=== PATIENT | male | born 1960 | race African-American/Black ===

== ENCOUNTER 2019-12-29 21:58 | Inpatient (IN) | payer MEDICARE ==
[~2019-12-29 21:58] MED LIST: Iopamidol-370 76% 500 ML 1 ML ONE
[2019-12-29] MEDS ORDERED: Nitroglycerin 2% Ointment 1 INCH/1 GM Packet ONE (22:16)
[2019-12-29 22:44] LABS: #Basophils 0.1 thou/uL (0.0-0.2); #Eosinphils 0.1 thou/uL (0.0-0.7); #Lymphocytes 1.6 thou/uL (1.20-3.40); #Monocytes 0.8 thou/uL (0.11-0.59); #Neutrophils 7.6 thou/uL (1.40-6.50); %Basophils 0.7 % (0.0-1.0); %Eosinophils 0.9 % (0.0-10.0); %Lymphocytes 15.7 % (21.0-51.0); %Monocytes 7.8 % (0.0-10.0); %Neutrophils 74.9 % (42.0-75.0); Hemoglobin 14.8 g/dL (14.0-18.0); Mean Corpuscular Hemoglobin 31.4 pg (27.0-31.0); Mean Corpuscular Volume 95.2 fL (78.0-98.0); Mean Platelet Volume 7.3 fL (7.4-10.4); Platelet Count 264 thou/uL (130-400); Red Blood Cell (RBC) Count 4.72 mill/uL (4.70-6.10); White Blood Cell (WBC) Count 10.2 thou/uL (4.8-10.8)
[2019-12-29 23:05] LABS: ALT (SGPT) 10 U/L (8-55); AST (SGOT) 14 U/L (5-34); Alkaline Phosphatase 92 U/L (40-110); Anion Gap 23 mmol/L (10-20); BUN (Urea Nitrogen) 23 mg/dL (8.4-25.7); Bilirubin, Total 0.4 mg/dL (0.2-1.2); CK (CPK) 242 U/L (30-200); Calc. Creatinine Clearance 0 mL/min (70-130); Calcium 9.9 mg/dL (7.8-10.44); Carbon Dioxide 16 mmol/L (22-29); Chloride 99 mmol/L (98-107); Estimated GFR-MDRD 50; Globulin 2.7 g/dL (2.4-3.5); Glucose 482 mg/dL (70-105); Potassium 4.5 mmol/L (3.5-5.1); Protein, Total 6.7 g/dL (6.0-8.3); Sodium 133 mmol/L (136-145)
[2019-12-29] MEDS ORDERED: Insulin Regular 300 UNITS/3 ML VIAL ONE (23:17)
[2019-12-29] MEDS ORDERED: Metoclopramide HCl 10 MG/2 ML VIAL ONE (23:17)
[2019-12-29] MEDS ORDERED: Fentanyl 100 MCG/2 ML VIAL ONE (23:19)
[2019-12-29 23:31] LABS: Acetaminophen Less than 6.0 mcg/mL (10.0-30.0); Alcohol Less than 10 mg/dL (Less than 10); Salicylate Less than 8.0 mg/dL (15.0-30.0)
[2019-12-30] LABS: Amphetamine Not Detected (NotDetected); Barbiturates Screen Not Detected (NotDetected); Benzodiazepine Screen Not Detected (NotDetected); Cocaine Metabolite Screen Not Detected (NotDetected); Medtox Control Line Valid? VALID (VALID); Medtox Reader # READER 1; Methadone Not Detected (NotDetected); Methamphetamine Not Detected (NotDetected); Opiate Screen Not Detected (NotDetected); Oxycodone Screen Not Detected (NotDetected); Phencyclidine (PCP) Not Detected (NotDetected); THC/Cannabinoid Screen Detected (NotDetected); Tricyclic Screen Not Detected (NotDetected)
--- NOTE | 2019-12-30 00:28 | RAD ---
AP CHEST: Date: 12/29/2019 HISTORY: Chest pain. COMPARISON: 06/18/2015. FINDINGS: The lung gonzalez appear clear. No infiltrate or vascular congestion. Heart and mediastinum unremarkabl e. IMPRESSION: Unremarkable chest. POS: AGW
[2019-12-30] MEDS ORDERED: NS 0.9% w/ 20 MEQ KCL 1,000 ML/1,000 ML BAG IV PRN ×2 (01:49)
[2019-12-30] MEDS ORDERED: D5 1/2 NS w/20 mEq KCL 1,000 ML IV PRN (01:49)
[2019-12-30] MEDS ORDERED: Dextrose 50% Abboject 50 ML SYRINGE SLOW IVP PRN ×2 (01:49→09:13)
[2019-12-30] MEDS ORDERED: Dextrose 5% in Water 1,000 ML IV PRN ×2 (01:49→09:13)
[2019-12-30] MEDS ORDERED: Sodium Chloride 0.9% 1,000 ML IV PRN ×8 (01:49→02:33)
[2019-12-30] MEDS ORDERED: Dextrose 5 %-0.45 % NaCl 1,000 ML IV PRN ×2 (01:49→02:33)
[2019-12-30] MEDS ORDERED: Insulin Regular 100 units/100 ml in NS IVPB SCH (02:00)
[2019-12-30] MEDS ORDERED: HUMULIN R 100 UNITS in Sodium Chloride 0.9% 100 ML IVPB SCH ×2 (02:00→02:33)
[2019-12-30] MEDS ORDERED: Electrolyte Replacement Protocol FS PRN (02:00)
[2019-12-30] MEDS ORDERED: ADD ELECTROLYTE REPLACEMENT SET TO PROFILE FS SCH (02:00)
[2019-12-30] MEDS ORDERED: Acetaminophen 500 MG TAB PO PRN (02:33)
[2019-12-30] MEDS ORDERED: Ondansetron ODT 4 MG TAB PO PRN (02:33)
[2019-12-30] MEDS ORDERED: hydrALAZINE 20 MG/ML VIAL SLOW IVP PRN (02:33)
[2019-12-30] MEDS ORDERED: Ondansetron PF 4 MG/2 ML Vial IVP PRN (02:33)
[2019-12-30] MEDS ORDERED: Electrolyte Replacement Protoc 1 EACH EACH IVPB PRN (02:33)
[2019-12-30] MEDS ORDERED: NS 0.9% w/ 20 MEQ KCL 1,000 ML IV PRN ×2 (02:33)
[2019-12-30 02:45] VITALS: BMI 21.7
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
[2019-12-30] MEDS: D5 1/2 NS w/20 mEq KCL 1,000 ML IV PRN ×2 (04:04→08:05)
[2019-12-30 04:33] LABS: Hemoglobin A1c 10.9 % (4.0-6.0)
[2019-12-30 04:50] LABS: Anion Gap 17 mmol/L (10-20); BUN (Urea Nitrogen) 19 mg/dL (8.4-25.7); Calc. Creatinine Clearance 58 mL/min (70-130); Calcium 8.8 mg/dL (7.8-10.44); Carbon Dioxide 16 mmol/L (22-29); Chloride 106 mmol/L (98-107); Estimated GFR-MDRD 71; Glucose 242 mg/dL (70-105); Magnesium 1.7 mg/dL (1.6-2.6); Potassium 3.8 mmol/L (3.5-5.1); Sodium 135 mmol/L (136-145)
[2019-12-30 04:54] LABS: Troponin I 0.026 ng/mL (< 0.028)
[2019-12-30 05:06] LABS: Hemoglobin 13.3 g/dL (14.0-18.0); Mean Corpuscular HGB CONC 32.3 g/dL (32.0-36.0); Mean Corpuscular Hemoglobin 29.9 pg (27.0-31.0); Mean Corpuscular Volume 92.4 fL (78.0-98.0); Mean Platelet Volume 7.7 fL (7.4-10.4); Platelet Count 270 thou/uL (130-400); Red Blood Cell (RBC) Count 4.47 mill/uL (4.70-6.10); White Blood Cell (WBC) Count 14.1 thou/uL (4.8-10.8)
[2019-12-30] MEDS ORDERED: Magnesium 2 GM/50 ML 2 GM in Premix Bag 1 BAG IVPB SCH (05:15)
[2019-12-30 06:48] LABS: Anion Gap 11 mmol/L (10-20); BUN (Urea Nitrogen) 17 mg/dL (8.4-25.7); Calc. Creatinine Clearance 63 mL/min (70-130); Calcium 8.5 mg/dL (7.8-10.44); Carbon Dioxide 20 mmol/L (22-29); Chloride 108 mmol/L (98-107); Estimated GFR-MDRD 78; Glucose 203 mg/dL (70-105); Potassium 3.9 mmol/L (3.5-5.1); Sodium 135 mmol/L (136-145)
[2019-12-30 06:53] LABS: Troponin I 0.023 ng/mL (< 0.028)
--- NOTE | 2019-12-30 07:02 | CT ---
CTA CHEST AND ABDOMEN FOR AORTOGRAM: INDICATIONS: Chest pain. Assess for aortic dissection. TECHNIQUE: Multiple axial tomograms obtained following aortogram protocol with multiplanar reconstruction and 3D post processing. FINDINGS: The thoracic aorta shows no evidence of aneurysm or dissection. The abdominal aorta shows atherosclerotic change. No evidence of dissection. The bifurcation is not i ncluded on the exam but the exam extends to the aortic bifurcation. Soft tissues: The lung bases are clear. Liver, spleen, pancreas: Unremarkable. Kidneys: Unremarkable. Bowel loops: Unremarkable as visualized. The abdominal aorta is mildly ectatic distally, measuring up to 2.4 cm. There is atherosclerotic avalos ge with some peripheral thrombus seen. IMPRESSION: 1. Atherosclerotic changes in the abdominal aorta with mild ectasia and peripheral thrombus, as noted above. There is no evidence of dissection. 2. The thoracic aorta is unremarkable. POS: AGW
[2019-12-30] MEDS: Famotidine/PF 20 mg/2ml Vial SLOW IVP SCH (08:04)
[2019-12-30] MEDS ORDERED: HumaLOG 300 UNITS/3 ML VIAL SC PRN (09:13)
--- NOTE | 2019-12-30 09:18 | PDOC.HOSPP ---
- Subjective Encounter Date: 12/30/19 Encounter Time: 09:17 Subjective: much improved, no complaints - Objective Vital Signs & Weight: Vital Signs (12 hours) Temp 12/30/19 07:31 97.8 F 12/30/19 04:04 97.8 F 12/30/19 02:25 97.5 F L Weight Weight 142 lb 11.2 oz Most Recent Monitor Data Heart Rate from ECG 70 NIBP 128/63 NIBP BP-Mean 84 Respiration from ECG 10 SpO2 97 I&O: 12/29/19 12/30/19 12/31/19 06:59 06:59 06:59 Intake Total 2070 510 Output Total 250 Balance 1820 510 Result Diagrams: 12/30/19 03:54 12/30/19 06:18 Hospitalist ROS - Medication Medications: Active Medications Generic Name Dose Route Start Last Admin Trade Name Pawelq PRN Reason Stop Dose Admin Famotidine 20 mg 12/30/19 09:00 12/30/19 08:04 Pepcid SLOW IVP 20 mg DAILY TAMANNA Administration - Exam Neck: no JVD Heart: RRR, no murmur Respiratory: CTAB Gastrointestinal: soft, non-tender, non-distended, normal bowel sounds Extremities: no edema Hosp A/P (1) DKA (diabetic ketoacidoses) Code(s): E11.10 - TYPE 2 DIABETES MELLITUS WITH KETOACIDOSIS WITHOUT COMA Status: Acute Qualifiers: Diabetes mellitus type: type 2 Diabetes mellitus complication detail: without coma Qualified Code(s): E11.10 - Type 2 diabetes mellitus with ketoacidosis without coma (2) Chest pain Code(s): R07.9 - CHEST PAIN, UNSPECIFIED Status: Acute Qualifiers: Chest pain type: precordial pain Qualified Code(s): R07.2 - Precordial pain (3) Hypertension Code(s): I10 - ESSENTIAL (PRIMARY) HYPERTENSION Status: Chronic Qualifiers: Hypertension type: essential hypertension Qualified Code(s): I10 - Essential (primary) hypertension (4) Hyperlipidemia associated with type 2 diabetes mellitus Code(s): E11.69 - TYPE 2 DIABETES MELLITUS WITH OTHER SPECIFIED COMPLICATION; E78.5 - HYPERLIPIDEMIA, UNSPECIFIED Status: Chronic - Plan DKA resolved transition to accu/ss start lantuss/metformin aadvancce diet stress test tomorrow?
[2019-12-30] MEDS ORDERED: Insulin Glargine 10 UNITS in Pre-Filled Syringe 1 EACH SC SCH (10:15)
[2019-12-30] MEDS: Sodium Chloride 0.9% 1,000 ML IV SCH ×2 (11:06→23:14)
[2019-12-30 11:18] LABS: Anion Gap 9 mmol/L (10-20); BUN (Urea Nitrogen) 15 mg/dL (8.4-25.7); Calc. Creatinine Clearance 71 mL/min (70-130); Calcium 8.3 mg/dL (7.8-10.44); Carbon Dioxide 21 mmol/L (22-29); Chloride 107 mmol/L (98-107); Estimated GFR-MDRD 89; Glucose 112 mg/dL (70-105); Potassium 3.9 mmol/L (3.5-5.1); Sodium 133 mmol/L (136-145)
[2019-12-30] MEDS: metFORMIN 500 MG TAB PO SCH (17:32)
[2019-12-30] MEDS: Insulin Glargine 40 UNITS in Pre-Filled Syringe 1 EACH SC SCH (20:22)
[2019-12-30] MEDS: Atorvastatin Calcium 20 MG TAB PO SCH (20:22)
[2019-12-31 05:04] LABS: Anion Gap 11 mmol/L (10-20); BUN (Urea Nitrogen) 11 mg/dL (8.4-25.7); Calc. Creatinine Clearance 78 mL/min (70-130); Calcium 8.2 mg/dL (7.8-10.44); Carbon Dioxide 21 mmol/L (22-29); Chloride 107 mmol/L (98-107); Estimated GFR-MDRD Greater than 90; Glucose 125 mg/dL (70-105); Magnesium 1.7 mg/dL (1.6-2.6); Potassium 4.1 mmol/L (3.5-5.1); Sodium 135 mmol/L (136-145)
[2019-12-31] MEDS ORDERED: Magnesium 2 GM/50 ML 2 GM in Premix Bag 1 BAG IVPB SCH (06:30)
--- NOTE | 2019-12-31 07:57 | PDOC.HOSPP ---
- Subjective Encounter Date: 12/31/19 Encounter Time: 07:55 Subjective: doing well, no chest pain - Objective Vital Signs & Weight: Vital Signs (12 hours) Temp Pulse Ox 12/31/19 07:28 97.6 F 12/31/19 03:53 97.6 F 12/30/19 23:28 97.4 F L 12/30/19 20:00 96 Weight Weight 142 lb 11.2 oz Most Recent Monitor Data Heart Rate from ECG 70 NIBP 120/52 NIBP BP-Mean 74 Respiration from ECG 23 SpO2 100 I&O: 12/30/19 12/31/19 01/01/20 06:59 06:59 06:59 Intake Total 2070 2620 Output Total 250 1750 Balance 1820 870 Result Diagrams: 12/30/19 03:54 12/31/19 03:32 Hospitalist ROS - Medication Medications: Active Medications Generic Name Dose Route Start Last Admin Trade Name Freq PRN Reason Stop Dose Admin Atorvastatin Calcium 40 mg 12/30/19 21:00 12/30/19 20:22 Lipitor PO 40 mg HS TAMANNA Administration Famotidine 20 mg 12/30/19 09:00 12/30/19 08:04 Pepcid SLOW IVP 20 mg DAILY TAMANNA Administration Sodium Chloride 1,000 mls @ 70 mls/hr 12/30/19 09:15 12/30/19 23:14 Normal Saline 0.9% IV Not Given .[id number] TAMANNA Insulin Glargine 40 units/ 0.4 mls @ 0 mls/hr 12/30/19 21:00 12/30/19 20:22 Miscellaneous Medication SC 0.4 mls HS TAMANNA Administration Insulin Human Lispro 0 units 12/30/19 09:13 12/30/19 17:32 Humalog SC 2 unit .MODERATE SLIDING SC PRN Administration Moderate Correctional Scale Metformin HCl 1,000 mg 12/30/19 17:00 12/30/19 17:32 Glucophage PO 1,000 mg BID-WM TAMANNA Administration - Exam General Appearance: awake alert Neck: no JVD Heart: RRR, no murmur Respiratory: CTAB Gastrointestinal: soft, non-tender, non-distended, normal bowel sounds Extremities: no edema Hosp A/P (1) DKA (diabetic ketoacidoses) Code(s): E11.10 - TYPE 2 DIABETES MELLITUS WITH KETOACIDOSIS WITHOUT COMA Status: Acute Qualifiers: Diabetes mellitus type: type 2 Diabetes mellitus complication detail: without coma Qualified Code(s): E11.10 - Type 2 diabetes mellitus with ketoacidosis without coma (2) Chest pain Code(s): R07.9 - CHEST PAIN, UNSPECIFIED Status: Acute Qualifiers: Chest pain type: precordial pain Qualified Code(s): R07.2 - Precordial pain (3) Hypertension Code(s): I10 - ESSENTIAL (PRIMARY) HYPERTENSION Status: Chronic Qualifiers: Hypertension type: essential hypertension Qualified Code(s): I10 - Essential (primary) hypertension (4) Hyperlipidemia associated with type 2 diabetes mellitus Code(s): E11.69 - TYPE 2 DIABETES MELLITUS WITH OTHER SPECIFIED COMPLICATION; E78.5 - HYPERLIPIDEMIA, UNSPECIFIED Status: Chronic - Plan cont diet, metformin, lantus cont asa, stresss test
[2019-12-31] MEDS: Famotidine/PF 20 mg/2ml Vial SLOW IVP SCH (08:00)
[2019-12-31] MEDS: metFORMIN 500 MG TAB PO SCH ×2 (08:02→17:16)
[2019-12-31] MEDS ORDERED: Aspirin Chewable 81 MG TAB PO SCH (09:00)
[2019-12-31 13:41] LABS: Base Excess-Venous -8.1 mmol/L (-2.0 to 3.0); Bicarbonate (HCO3v) 16.8 mmol/L (22.0-28.0); CO2 Tension (PvCO2) 32.8 mmHg (40.0-50.0); Hemoglobin - Calc 16.7 g/dL (14.0-18.0); Sodium 133 mmol/L (138-145); vO2 Saturation-calc 88.1 % (60.0-85.0)
[2019-12-31 13:42] LABS: Calcium, Ionized 1.07 mmol/L (See Comments:); Chloride 104 mmol/L (98-107); Potassium 4.7 mmol/L (3.5-5.1); T. Carbon Dioxide 17.8 mmol/L (22.0-28.0)
--- NOTE | 2019-12-31 16:51 | NM ---
NUCLEAR MEDICINE CARDIAC MYOCARDIAL PERFUSION SPECT EJECTION FRACTION STUDY WALL MOTION CINE: DATE: 12/31/2019 HISTORY: 59-year-old hypertensive, diabetic smoker with dyslipidemia presents with chest pain TECHNIQUE: Number of days: 1 Rest study: Technetium 99m-sestamibi (Cardiolite) dose: 9.0 mCi Pharmacologic stress: Adenosine dose: 36.4 mg Stress study: Technetium 99m-sestamibi (Cardiolite) dose: 27.2 mCi FINDINGS: CARDIAC (MYOCARDIAL PERFUSION) SPECT There is significant motion artifact on both the rest study and stress study. Apparent small fixed defects at inferoapical, and anteroseptoapical regions. No definite reversible myocardial perfusion defect identified. EJECTION FRACTION STUDY Left ventricular EF = 51 % WALL MOTION CINE No focal wall motion abnormality identified. IMPRESSION: 1. Suboptimal, limited study due to significant motion. 2. No definitive evidence of reversible ischemia. 3. Apparent small fixed defects around the apex, suggestive of infarctions/scar
[2019-12-31] MEDS: Sodium Chloride 0.9% 1,000 ML IV SCH (17:17)
--- NOTE | 2019-12-31 17:45 | DIS ---
DATE OF ADMISSION: 12/30/2019 DATE OF DISCHARGE: 12/30/2019 PRIMARY CARE PROVIDER: Dr. García Vargas. FINAL DIAGNOSES: Mild type 2 diabetes, ketoacidosis, pressure chest pain, acute kidney failure resolved, THC, essential hypertension. The patient was placed in the hospital in the assignment clerk hours on 12/29. MEDICINES: Discharge medicines are; 1. Hydrochlorothiazide 12.5 mg a day. 2. NovoLog 5 units subcu with meals t.i.d. 3. Lipitor 40 mg a day. 4. Aspirin 81 mg a day. 5. Lantus 40 units subcu at bedtime. 6. Metformin 1 g p.o. b.i.d. ALLERGIES: NO KNOWN DRUG ALLERGIES. DIET: Diabetic diet. PENDING AT TIME OF DISCHARGE: Nothing. CODE STATUS: Full. HOSPITAL COURSE: The patient was admitted early a.m., 12/30/2019 with some chest pain. He was noted to have a decreased CO2 on the lytes of 16 and elevated creatinine 1.7, blood sugar 482. He was started on IV insulin, IV fluids. These have been noted on the . He did not get formally admitted till the . On 12/29, his creatinine was down to 1.27, CO2 was still 16. His troponins were normal. CO2 has come up to 21 on the lytes, creatinine is dropped to 0.95. Blood sugars have been under 200. Metformin was added to his regimen. He had been on that previously. Nuclear medicine stress test was done today that showed some artifact, but no reversible ischemia. He has had no chest pain with the stress test. Situation was discussed with him this evening. It is 5 o'clock. He was desirous of going home since he is doing well. He is being discharged home to follow up with his PCP in 3 to 7 days. Diabetic diet as I mentioned before. I added metformin, which he had been on in the past to the present regimen since his hemoglobin A1c was above 10. This will require close attention by his PCP. Job ID: [id number]
[2019-12-31 19:39] VITALS: TEMP 98.2
[2019-12-31] MEDS: Atorvastatin Calcium 20 MG TAB PO SCH (20:17)
[2019-12-31] MEDS: Insulin Glargine 40 UNITS in Pre-Filled Syringe 1 EACH SC SCH (20:20)
[2019-12-31] MEDS ORDERED: Famotidine/PF 20 mg/2ml Vial SLOW IVP SCH (21:00)
== END 2019-12-31 20:45 | disposition home or self-care (01) | DRG 638 ==
LOC: ERS 21:58 → IMCU/EMU 12-30 01:33
PROVIDERS: ADMIT Family Medicine; ATTEND Family Medicine
DX: E11.10 Type 2 diabetes mellitus with ketoacidosis without coma (principal); N17.9 Acute kidney failure, unspecified; I10 Essential (primary) hypertension; F17.210 Nicotine dependence, cigarettes, uncomplicated; E78.5 Hyperlipidemia, unspecified; F12.10 Cannabis abuse, uncomplicated; R07.2 Precordial pain; E11.69 Type 2 diabetes mellitus with other specified complication; Z79.82 Long term (current) use of aspirin; Z79.4 Long term (current) use of insulin; Z79.899 Other long term (current) drug therapy
CPT/HCPCS: 36415; 36416; 71045; 71275; 72191; 74175; 78452; 80048; 80053; 80306; 80307; 82010; 82330; 82550; 82803; 83036; 83735; 84484; 85014; 85025; 85027; 85379; 93005; 93017; 96365; 96374; 96375; A9500; J1815; J2765; J3010; J3475; J3480; J3490; Q9967; S0028